=== PATIENT | female | born 1950 | race Hispanic/Latino ===

== ENCOUNTER 2017-01-01 17:24 | Emergency (ER) | payer MEDICARE ==
[2017-01-01] MEDS ORDERED: Sodium Chloride 0.9% 1,000 ML IV ONE (19:04)
[2017-01-01 19:30] LABS: BASO % 0.2 % (0.0-2.0); EOS # 0.1 K/uL (0.0-0.7); EOS % 0.7 % (0.0-4.0); HEMATOCRIT 36.3 % (34.0-47.0); LYMPH # 1.8 K/uL (1.0-4.3); LYMPH % 22.5 % (20.0-40.0); MEAN CELL VOLUME 87.6 fL (81.0-99.0); MEAN CORPUSCULAR HEMOGLOBIN 28.5 pg (27.0-31.0); MEAN CORPUSCULAR HGB CONC 32.5 g/dL (33.0-37.0); MEAN PLATELET VOLUME 7.4 fL (7.2-11.7); MONO # 0.5 K/uL (0.0-0.8); MONO % 6.8 % (0.0-10.0); RED CELL DISTRIBUTION WIDTH 13.5 % (11.5-14.5)
[2017-01-01 19:34] LABS: RBC URINE 10 /hpf (0-3); URINE BACTERIA RARE (<OCC); URINE BILIRUBIN NEGATIVE (NEGATIVE); URINE BLOOD 1+ (NEGATIVE); URINE COLOR Yellow (YELLOW); URINE GLUCOSE (UA) NORMAL (Normal); URINE KETONE TRACE mg/dL (NEGATIVE); URINE LEUKOCYTE ESTERASE NEG Leu/uL (Negative); URINE PROTEIN NEGATIVE (NEGATIVE); URINE UROBILINOGEN NORMAL mg/dL (0.2-1.0); WBC URINE 4 /hpf (0-5)
[2017-01-01] MEDS ORDERED: Sodium Chloride 0.9% 1,000 ML ONE (19:34)
[2017-01-01 19:36] LABS: CHLORIDE 99 mmol/L (98-107); POTASSIUM 3.9 mmol/L (3.6-5.2); SODIUM 138 mmol/L (132-148)
[2017-01-01 19:38] LABS: GFR AFRICAN-AMERICAN > 60
[2017-01-01 19:39] LABS: ALB/GLOB RATIO 1.4 (1.0-2.1); ALKALINE PHOSPHATASE 56 U/L (38-126); ALT/SGPT 19 U/L (9-52); AST/SGOT 15 U/L (14-36); BILIRUBIN,TOTAL 0.5 mg/dL (0.2-1.3); BLOOD UREA NITROGEN 14 mg/dL (7-17); CALCIUM 8.6 mg/dl (8.6-10.4); CARBON DIOXIDE 27 mmol/L (22-30); GLUCOSE,RANDOM 129 mg/dL (65-105); TOTAL PROTEIN 7.1 g/dL (6.3-8.3)
[2017-01-01] MEDS ORDERED: Iohexol 240 (50 ml) PO STA (20:23)
[2017-01-01] MEDS ORDERED: Morphine 4 MG/ML VIAL ONE (20:30)
[2017-01-01] MEDS ORDERED: Iohexol 240 (50 ml) ONE (20:30)
--- NOTE | 2017-01-01 21:25 | C.PDOC ---
Time Seen by Provider: 01/01/17 18:50 Chief Complaint (Nursing): Abdominal Pain History Per: Patient Onset/Duration Of Symptoms: Hrs (today) Current Symptoms Are (Timing): Still Present Severity: Moderate Location Of Pain/Discomfort: Suprapubic Quality Of Discomfort: Unable To Describe, "Pain" Associated Symptoms: Constipation Exacerbating Factors: None Alleviating Factors: None Last Bowel Movement: Today Additional History Per: Prior Records Past Medical History Reviewed: Historical Data, Nursing Documentation, Vital Signs Vital Signs: Last Vital Signs Temp 97.9 F 01/01/17 20:38 Pulse 62 01/01/17 20:38 Resp 16 01/01/17 20:38 BP 145/77 01/01/17 20:38 Pulse Ox 100 01/02/17 00:31 - Medical History PMH: HTN Surgical History: No Surg Hx Family History: States: Unknown Family Hx - Social History Hx Alcohol Use: No Hx Substance Use: No - Immunization History Hx Tetanus Toxoid Vaccination: No Hx Influenza Vaccination: No Hx Pneumococcal Vaccination: No Review Of Systems Except As Marked, All Systems Reviewed And Found Negative. Constitutional: Negative for: Fever Cardiovascular: Positive for: Light Headedness (resolved). Negative for: Chest Pain Respiratory: Negative for: Shortness of Breath Gastrointestinal: Positive for: Nausea, Vomiting (4 days ago, resolved.), Abdominal Pain, Hematochezia (after difficult BM today). Negative for: Diarrhea , Hematemesis Genitourinary: Negative for: Dysuria Musculoskeletal: Positive for: Back Pain (low) Skin: Negative for: Rash Neurological: Positive for: Headache (6 days ago, resolved). Negative for: Weakness, Numbness, Seizures, Altered Mental Status Physical Exam - Physical Exam Appears: Non-toxic, No Acute Distress Skin: Normal Color, Warm, Dry, No Rash Head: Atraumatic, Normacephalic Eye(s): bilateral: Normal Inspection, PERRL, EOMI Neck: Normal ROM, Supple Cardiovascular: Rhythm Regular Respiratory: Normal Breath Sounds, No Accessory Muscle Use Gastrointestinal/Abdominal: Soft, Tenderness (LLQ), No Guarding, No Rebound Rectal: Heme Positive, Tenderness, Other (No stool in rectal vault, but small amount of red blood on gloved finger) Back: No CVA Tenderness Extremity: Normal ROM Neurological/Psych: Oriented x3, Normal Motor, Normal Sensation ED Course And Treatment - Laboratory Results Result Diagrams: 01/01/17 23:46 01/01/17 19:25 Lab Interpretation: No Acute Changes Interpretation Of Abnormal: H/H stable ECG: Interpreted By Me, Viewed By Me ECG Rhythm: Sinus Rhythm ECG Interpretation: No Acute Changes Rate From EC O2 Sat by Pulse Oximetry: 100 Pulse Ox Interpretation: Normal - CT Scan/US CT abdomen/pelvis Other Rad Studies (CT/US): Read By Radiologist, Radiology Report Reviewed CT/US Interpretation: IMPRESSION: . Cholelithiasis, without inflammation. Mural thickening within the fluid-filled rectosigmoid colon, findings. suggesting focal enteritis. Nonobstructing umbilical hernia. Progress - Interventions Interventions:: Observation, Intravenous fluid - Medications Administered Intravenous: Antiemetic, Opiate, Other (PPI) - Data Reviewed Data Reviewed: Lab, Diagnostic imaging, EKG, Old records - Patient Status Patient status: Mostly improved - Continuity of Care Discussed patient case with:: Patient, Family-HIPPA compliant, ED Nurse - Patient Plan Patient Plan: Discharge, F/U with PCP, Continue present meds Disposition Counseled Patient/Family Regarding: Studies Performed, Diagnosis, Need For Followup, Rx Given - Disposition Referrals: Davin Messina DO [Staff Provider] - Luis Alberto Sanchez MD [Staff Provider] - Disposition: HOME/ ROUTINE Disposition Time: 00:48 Condition: STABLE Additional Instructions: Follow up with your doctor within 1-2 days. Follow up with a Resident Buyer for further evaluation and treatment, including Colonoscopy. Return to the ER if you develop fever, vomiting, dizziness, heavy bleeding, worsening of symptoms or if you have any other concerns. Prescriptions: Ciprofloxacin [Cipro] 1 tab PO BID #14 tab metroNIDAZOLE [Flagyl] 500 mg PO TID #21 tab Instructions: Rectal Bleeding (ED) - Clinical Impression Clinical Impression: Rectosigmoiditis, Rectal bleeding
[2017-01-01] MEDS ORDERED: Iodixanol 320 MG/ML 100 ML BOTTLE IV ONE (21:35)
--- NOTE | 2017-01-01 23:18 | CT ---
EXAM: CT Abdomen and Pelvis With Intravenous Contrast CLINICAL HISTORY: 66 years old, female; Pain and signs and symptoms; Other: Rectal bleed; Abdominal pain; Generalized; Additional info: Abd pain, rectal bleeding TECHNIQUE: Axial computed tomography images of the abdomen and pelvis with intravenous contrast. This CT exam was performed using one or more of the following dose reduction techniques: automated exposure control, adjustment of the mA and/or kV according to patient size, and/or use of iterative reconstruction technique. Coronal and sagittal reformatted images were created and reviewed. CONTRAST: 100 mL of visipaque 320 administered intravenously. COMPARISON: No relevant prior studies available. FINDINGS: Lower thorax: The bilateral lung bases are clear. ABDOMEN: Liver: No acute findings. Gallbladder and bile ducts: The gallbladder is only minimally distended, and contains multiple noncalcified gallbladder stones. No significant intra- or extrahepatic biliary ductal dilation. Pancreas: Enhances homogeneously. No ductal dilation. No discrete mass. Spleen: No acute findings. Adrenals: No acute findings. Kidneys and ureters: No acute findings. No hydronephrosis or renal calculi. No discrete solid mass. PELVIS: Bladder: Mural thickening without surrounding inflammation. Reproductive: No acute findings. Appendix: The appendix is not definitively visualized, however no pericecal inflammatory changes detected. ABDOMEN and PELVIS: Stomach and bowel: No obstruction. Mural thickening within the fluid-filled rectosigmoid colon. Postoperative change within the left hemipelvis. Oral contrast extends to the level of the transverse colon, without obstruction. A nonobstructing fat-containing umbilical hernia is present. Peritoneum: No significant fluid collection. No free air. Lymph nodes: No pathologically enlarged lymph nodes. Vasculature: Calcified atherosclerotic disease. Bones: No acute fracture. IMPRESSION: Cholelithiasis, without inflammation. Mural thickening within the fluid-filled rectosigmoid colon, findings suggesting focal enteritis. Nonobstructing umbilical hernia.
[2017-01-01 23:50] LABS: BASO % 0.3 % (0.0-2.0); EOS % 0.5 % (0.0-4.0); HEMATOCRIT 33.4 % (34.0-47.0); LYMPH # 2.4 K/uL (1.0-4.3); LYMPH % 28.6 % (20.0-40.0); MEAN CELL VOLUME 86.5 fL (81.0-99.0); MEAN CORPUSCULAR HEMOGLOBIN 29.2 pg (27.0-31.0); MEAN CORPUSCULAR HGB CONC 33.8 g/dL (33.0-37.0); MEAN PLATELET VOLUME 7.3 fL (7.2-11.7); MONO # 0.6 K/uL (0.0-0.8); NRBC % 0.1 % (0.0-2.0); RED CELL DISTRIBUTION WIDTH 13.4 % (11.5-14.5); WHITE BLOOD COUNT 8.4 K/uL (4.8-10.8)
[2017-01-02 01:39] VITALS: BP 138/78; PULSE 82; RESP 18; TEMP 98.2; O2SAT 98
--- NOTE | 2017-01-03 12:04 | CARD ---
APPROVED REPORT EKG Measurement Heart [id number] <Conclusion> Normal sinus rhythm Normal ECG
== END 2017-01-02 01:20 | disposition home or self-care (01) ==
LOC: C.ER 17:24
DX: K63.89 Other specified diseases of intestine (principal); K62.5 Hemorrhage of anus and rectum
CPT/HCPCS: 74177; 80053; 81001; 83690; 84484; 85025; 85610; 85730; 93005; 96361; 96374; 96375; 99285; C9113; G0328; J2270; J7040; Q9966; Q9967

== ENCOUNTER 2017-03-07 07:09 | Day surgery (SDC) | payer MEDICARE ==
[2017-03-07] MEDS ORDERED: Propofol 10 mg/ml Inj (20 ML) ONE (08:56)
[2017-03-07] MEDS ORDERED: Lidocaine Hydrochloride 5 ML INJ ONE (08:57)
[2017-03-07] MEDS ORDERED: Lactated Ringer's 500 ML IV ONE ×3 (09:02)
[2017-03-07] MEDS ORDERED: Lactated Ringer's 500 ML IV SCH (09:15)
[2017-03-07 09:49] VITALS: TEMP 97.7
[2017-03-07 13:40] VITALS: BP 128/61; PULSE 72; RESP 15; O2SAT 100
== END 2017-03-07 10:30 | disposition home or self-care (01) ==
LOC: C.ENDO 07:09
PROVIDERS: ATTEND Internal Medicine Gastroenterology
DX: K62.1 Rectal polyp (principal); K62.5 Hemorrhage of anus and rectum; K64.8 Other hemorrhoids
CPT/HCPCS: 45388; 88305; J2704; J7120